=== PATIENT | female | born 1965 | race American Indian/Alaskan Native ===

== ENCOUNTER 2017-11-02 01:50 | Emergency (ER) | payer SELFPAY ==
[2017-11-02] MEDS ORDERED: Cephalexin 500 MG Cap PO ONE (01:51)
[2017-11-02 02:10] VITALS: BP 168/99
[2017-11-02] MEDS ORDERED: Cephalexin 500 MG Cap ONE (02:31)
--- NOTE | 2017-11-02 02:38 | EDM.PDOC ---
ED HPI GENERAL MEDICAL PROBLEM - General Chief Complaint: General Stated Complaint: EAR TO SINUSES, FEVER Time Seen by Provider: 11/02/17 02:10 Source of Information: Reports: Patient History Limitations: Reports: No Limitations - History of Present Illness INITIAL COMMENTS - FREE TEXT/NARRATIVE: c/o pain to left upper first molar worse today, pressure into sinus area and left ear, Left Ear Pain Score (Numeric/FACES): 6 - Related Data Allergies Allergy/AdvReac Type Severity Reaction Status Date / Time amoxicillin [Amoxicillin] Allergy Hives Verified 11/02/17 01:55 Penicillins Allergy Hives Verified 11/02/17 01:55 Home Meds: Home Meds Metoprolol Succinate [Toprol Xl] 100 mg PO DAILY 08/08/14 [History] cloNIDine [Catapres] 0.1 mg PO Q12HR 08/08/14 [History] Acetaminophen [Tylenol] 500 mg PO Q6H PRN 03/24/15 [History] Cyclobenzaprine [Flexeril] 1 tab PO ASDIRECTED 04/10/16 [History] Acetaminophen/oxyCODONE [Percocet 325-5 MG] 1 tab PO ASDIRECTED PRN 11/02/17 [ History] Ferrous Gluconate [Iron] 11/02/17 [History] Multivitamin with Minerals [Hair, Skin and Nails] 11/02/17 [History] Past Medical History - Past Health History Medical/Surgical History: Denies Medical/Surgical History HEENT History: Reports: None Cardiovascular History: Reports: Hypertension Respiratory History: Reports: None Gastrointestinal History: Reports: GERD Genitourinary History: Reports: None PATIENTS TRANSPORTER History: Reports: None Musculoskeletal History: Reports: Other (See Below) Other Musculoskeletal History: Arthritic changes in her back Neurological History: Reports: None Psychiatric History: Reports: Anxiety Endocrine/Metabolic History: Reports: None Hematologic History: Reports: Anemia Immunologic History: Reports: None Oncologic (Cancer) History: Reports: None Dermatologic History: Reports: None - Infectious Disease History Infectious Disease History: Reports: Chicken Pox - Past Surgical History HEENT Surgical History: Reports: Other (See Below) Cardiovascular Surgical History: Reports: None GI Surgical History: Reports: Colonoscopy, EGD Female Surgical History: Reports: Tubal Ligation, Other (See Below) Musculoskeletal Surgical History: Reports: Other (See Below) Other Musculoskeletal Surgeries/Procedures:: foot surgery Other Oncologic Surgeries/Procedures: mole removed from back...benign Social & Family History - Tobacco Use Smoking Status *Q: Former Smoker Years of Tobacco use: 20 Packs/Tins Daily: 0.2 Used Tobacco, but Quit: Yes Month Tobacco Last Used: 2015 Second Hand Smoke Exposure: No - Caffeine Use Caffeine Use: Reports: Soda - Alcohol Use Days Per Week of Alcohol Use: 0 Number of Drinks Per Day: 5 Total Drinks Per Week: 0 - Recreational Drug Use Recreational Drug Use: No Drug Use in Last 12 Months: No - Living Situation & Occupation Living situation: Reports: with Family Occupation: Student ED ROS GENERAL - Review of Systems Review Of Systems: ROS reveals no pertinent complaints other than HPI. ED EXAM, GENERAL - Physical Exam Exam: See Below Exam Limited By: No Limitations General Appearance: Alert, Mild Distress Eye Exam: Bilateral Eye: EOMI, Globe Laceration Ears: Normal External Exam, Hearing Loss Ear Exam: Right Ear: TM Red Nose: Normal Inspection Throat/Mouth: Normal Inspection Head: Atraumatic, Other Neck: Normal Inspection, Supple Respiratory/Chest: No Respiratory Distress, Lungs Clear, Normal Breath Sounds, No Accessory Muscle Use, Chest Non-Tender Cardiovascular: Normal Peripheral Pulses, Regular Rate, Rhythm GI/Abdominal: Normal Bowel Sounds, No Abnormal Bruit Back Exam: Normal Inspection Extremities: Normal Inspection, Normal Range of Motion Neurological: Alert, Oriented, Normal Gait Skin Exam: Warm, Dry, Intact Course - Vital Signs Last Recorded V/S: Last Vital Signs Temp 96.1 F 11/02/17 02:07 Pulse 82 11/02/17 02:07 Resp 16 11/02/17 02:07 BP 168/99 H 11/02/17 02:07 Pulse Ox 99 11/02/17 02:07 Departure - Departure Time of Disposition: 02:25 Disposition: Home, Self-Care 01 Condition: Good Clinical Impression: Pain due to dental caries - Discharge Information Instructions: Dental Abscess, [id number] Additional Instructions: keflex 500mg one 4times daily for one week alternate tylenol and ibuprofen for discomfort room temperature liquids chew on opposite side follow up with dentist on Saturday
== END 2017-11-02 02:34 | disposition home or self-care (01) ==
LOC: DL.ED 01:50
DX: K02.9 Dental caries, unspecified (principal); I10 Essential (primary) hypertension; Z88.1 Allergy status to other antibiotic agents; Z88.0 Allergy status to penicillin; Z79.899 Other long term (current) drug therapy; Z87.891 Personal history of nicotine dependence
CPT/HCPCS: 99282; A9270-GY

== ENCOUNTER 2020-07-04 18:43 | Emergency (ER) | payer MEDICAID, OTHER ==
[2020-07-04] MEDS ORDERED: diphenhydrAMINE 50 MG Cap PO ONE (18:44)
[2020-07-04] MEDS ORDERED: Cyclobenzaprine 10 MG Tab PO ONE (18:44)
[2020-07-04 19:10] VITALS: BP 147/89; PULSE 79
--- NOTE | 2020-07-04 19:30 | EDM.PDOC ---
ED HPI GENERAL MEDICAL PROBLEM - General Chief Complaint: Headache Stated Complaint: HIGH BLOOD PRESSURE, SOB, HEADACHES Time Seen by Provider: 07/04/20 19:30 Source of Information: Reports: Patient, RN, RN Notes Reviewed History Limitations: Reports: No Limitations - History of Present Illness INITIAL COMMENTS - FREE TEXT/NARRATIVE: Patient presents to ER with complaint of headache, muscle pain in the neck and shoulders. Also complains of some muscle pains in the back and hips. Patient states she does have a history of osteoarthritis. States her blood pressure been has been elevated recently, last BP at home was 168/98. Blood pressure here is 153/73. Patient states she has not had any known exposure to COVID, states she stays home most of the time. Patient has seen her primary care provider, has been approved for physical therapy, and is trying to get approved for therapeutic massage. Onset: Gradual Left Upper Shoulder Pain Score (Numeric/FACES): 8 - Related Data Allergies Allergy/AdvReac Type Severity Reaction Status Date / Time amoxicillin [Amoxicillin] Allergy Hives Verified 07/04/20 19:10 Penicillins Allergy Hives Verified 07/04/20 19:10 Home Meds: Home Meds Metoprolol Succinate [Toprol Xl] 100 mg PO DAILY 08/08/14 [History] cloNIDine [Catapres] 0.1 mg PO Q12HR 08/08/14 [History] Acetaminophen [Tylenol] 500 mg PO Q6H PRN 03/24/15 [History] Cyclobenzaprine [Flexeril] 1 tab PO ASDIRECTED 04/10/16 [History] Acetaminophen/oxyCODONE [Percocet 325-5 MG] 1 tab PO ASDIRECTED PRN 11/02/17 [History] Ferrous Gluconate [Iron] 11/02/17 [History] Multivitamin with Minerals [Hair, Skin and Nails] 11/02/17 [History] Citalopram [Citalopram HBr] 20 mg PO DAILY #28 tab 09/13/18 [Rx] Past Medical History - Past Health History Medical/Surgical History: Denies Medical/Surgical History HEENT History: Reports: None, Impaired Vision Other HEENT History: wears glasses Cardiovascular History: Reports: Hypertension Respiratory History: Reports: None Gastrointestinal History: Reports: GERD Genitourinary History: Reports: None CREDENTIALER History: Reports: None Musculoskeletal History: Reports: Arthritis, Neck Pain, Chronic Other Musculoskeletal History: Arthritic changes in her back Neurological History: Reports: None Psychiatric History: Reports: Anxiety Endocrine/Metabolic History: Reports: Obesity/BMI 30+ Hematologic History: Reports: Anemia Immunologic History: Reports: None Oncologic (Cancer) History: Reports: None Dermatologic History: Reports: None - Infectious Disease History Infectious Disease History: Reports: Chicken Pox - Past Surgical History HEENT Surgical History: Reports: Other (See Below) Cardiovascular Surgical History: Reports: None GI Surgical History: Reports: Colonoscopy, EGD Female Surgical History: Reports: Tubal Ligation, Other (See Below) Musculoskeletal Surgical History: Reports: Other (See Below) Other Musculoskeletal Surgeries/Procedures:: foot surgery Other Oncologic Surgeries/Procedures: mole removed from back...benign Social & Family History - Family History Family Medical History: Noncontributory - Tobacco Use Smoking Status *Q: Unknown Ever Smoked - Caffeine Use Caffeine Use: Reports: Coffee - Recreational Drug Use Recreational Drug Use: No - Living Situation & Occupation Living situation: Reports: with Family Occupation: Student ED ROS GENERAL - Review of Systems Review Of Systems: Comprehensive ROS is negative, except as noted in HPI. - Physical Exam Exam: See Below Exam Limited By: No Limitations General Appearance: Alert, WD/WN, No Apparent Distress Eye Exam: Bilateral Eye: EOMI, Normal Inspection Ears: Normal External Exam, Hearing Grossly Normal Nose: Normal Inspection, Normal Mucosa, No Blood Throat/Mouth: Normal Inspection, Normal Lips, Normal Teeth, Normal Gums, Normal Oropharynx, Normal Voice, No Airway Compromise Head Exam: Atraumatic, Normocephalic Neck: Normal Inspection, Supple, Non-Tender, Full Range of Motion Respiratory/Chest: No Respiratory Distress, Lungs Clear, Normal Breath Sounds, No Accessory Muscle Use, Chest Non-Tender Cardiovascular: Normal Peripheral Pulses, Regular Rate, Rhythm, No Edema, No Gallop, No JVD, No Murmur, No Rub GI/Abdominal: Normal Bowel Sounds, Soft, Non-Tender, No Organomegaly, No Distention, No Abnormal Bruit, No Mass (Female) Exam: Deferred Rectal (Female) Exam: Deferred Neuro Exam (Abbreviated): Alert, Oriented, CN II-XII Intact, Normal Cognition, Normal Gait, Normal Reflexes, No Motor/Sensory Deficits Back Exam: Normal Inspection, Full Range of Motion, NT Extremities: Normal Inspection, Normal Range of Motion, Non-Tender, No Pedal Edema, Normal Capillary Refill Psychiatric: Normal Affect, Normal Mood Skin Exam: Warm, Dry, Intact, Normal Color, No Rash Course - Vital Signs Last Recorded V/S: Last Vital Signs Temp 96.4 F L 07/04/20 18:58 Pulse 79 07/04/20 18:58 Resp 18 07/04/20 18:58 BP 147/89 H 07/04/20 18:58 Pulse Ox 98 07/04/20 18:58 - Orders/Labs/Meds Orders: Active Orders 24 hr Category Date Time Status DRUG SCREEN URINE BIORAD [URCHEM] Stat Lab 07/04/20 19:24 Ordered UA W/GOLDIE RFLX IF INDICATED [URIN] Stat Lab 07/04/20 19:24 Ordered Meds: Medications Discontinued Medications Generic Name Dose Route Start Last Admin Trade Name Freq PRN Reason Stop Dose Admin Ketorolac Tromethamine 30 mg 07/04/20 19:47 Toradol IM 07/04/20 19:48 ONETIME ONE Departure - Departure Time of Disposition: 19:53 Disposition: Home, Self-Care 01 Condition: Good Clinical Impression: Tension-type headache - Discharge Information *PRESCRIPTION DRUG MONITORING PROGRAM REVIEWED*: No *COPY OF PRESCRIPTION DRUG MONITORING REPORT IN PATIENT JENNIFER: No Instructions: Tension Headache, Adult, [id number] Forms: ED Department Discharge Additional Instructions: Alternate heat and ice as tolerated Rx: Cyclobenzaprine, Benadryl May use Tylenol or Excedrin tension headache [id number] as directed Drink plenty of water Follow-up with your primary care provider Sepsis Event Note (ED) - Evaluation Sepsis Screening Result: No Definite Risk - Focused Exam Vital Signs: Vital Signs Temp Pulse Resp BP Pulse Ox 07/04/20 18:58 96.4 F L 79 18 147/89 H 98 - My Orders Last 24 Hours: My Active Orders 07/04/20 19:24 DRUG SCREEN URINE BIORAD [URCHEM] Stat UA W/GOLDIE RFLX IF INDICATED [URIN] Stat - Assessment/Plan Last 24 Hours: My Active Orders 07/04/20 19:24 DRUG SCREEN URINE BIORAD [URCHEM] Stat UA W/GOLDIE RFLX IF INDICATED [URIN] Stat
[2020-07-04] MEDS ORDERED: Ketorolac 30 MG/ML SDV IM ONE (19:47)
[2020-07-04] MEDS ORDERED: diphenhydrAMINE 50 MG Cap ONE (19:55)
[2020-07-04] MEDS ORDERED: Cyclobenzaprine 10 MG Tab ONE (19:56)
== END 2020-07-04 20:04 | disposition home or self-care (01) ==
LOC: DL.ED 18:43
DX: G44.209 Tension-type headache, unspecified, not intractable (principal); I10 Essential (primary) hypertension; F41.9 Anxiety disorder, unspecified; E66.9 Obesity, unspecified; Z68.39 Body mass index [BMI] 39.0-39.9, adult; Z88.0 Allergy status to penicillin; Z88.1 Allergy status to other antibiotic agents; Z79.899 Other long term (current) drug therapy
CPT/HCPCS: 80305-QW; 81003; 96372; 99284; A9270-GY; J1885; Q0163

== ENCOUNTER 2021-11-06 06:54 | Day surgery (SDC) | payer MEDICAID, OTHER ==
[~2021-11-06 06:54] MED LIST: Dextrose 5%-0.45% NaCl 1,000 ML IV SCH; Midazolam 1 MG/ML 2 ML SDV ONE; Sodium Chloride 0.9% 10 ML Syringe FLUSH PRN; Sodium Chloride 0.9% 10 ML Syringe FLUSH SCH; fentaNYL 100 MCG/2 ML SDV ONE
[2021-11-06] MEDS ORDERED: fentaNYL 100 MCG/2 ML SDV IV ONE ×4 (06:55→08:33)
[2021-11-06] MEDS ORDERED: Midazolam 1 MG/ML 2 ML SDV IV ONE ×7 (06:55→08:31)
--- NOTE | 2021-11-06 10:06 | OR ---
DATE: 11/06/2021 PROCEDURE: Total colonoscopy. INSTRUMENT USED: PCF-H190DL Olympus video colonoscope. PREMEDICATIONS: Fentanyl 125 mcg intravenous, Versed 4 mg intravenous. Nasal O2 cannula. The procedure was done under pulse oximetry, BP recording, and cardiac monitoring. INDICATION: The patient with rectal bleeding. Colonoscopic examination is done for detection of any polypoid lesions and removal, endoscopic hemostasis therapy if needed. DESCRIPTION OF PROCEDURE: Initial rectal exam was unremarkable. Rigid anoscopy showed small internal hemorrhoids without bleeding from them. The colonoscope was passed with ease up to the ileocecal area. Photographs were taken of the cecum identified by landmarks of appendiceal orifice and double-bulged ileocecal folds. No bleeding was noted from any of the visualized areas at the commencement of the examination. The bowel preparation was found to be adequate, Dell scale 2 in right colon, 3 in other areas, total score 8. No stricture. No vascular ectasia. No large isolated ulcerations seen. No evidence of diffuse inflammatory bowel disease in the form of friability, contact bleeding, or ulcerations. No polyp or tumor mass identified. Some pigmentation noted consistent with melanosis coli. Probing the proximal sides of folds and flexures using adequate distention and clearing up the stool material, withdrawal of the scope was made, cecum to rectum time over 9 minutes. No bleeding was noted from any of the visualized areas at the completion of examination. IMPRESSION: 1. Internal hemorrhoids. 2. Melanosis coli. The patient tolerated the procedure well. [facility] /[id number]
[2021-11-06 11:19] VITALS: BP 148/89; PULSE 14
== END 2021-11-06 10:53 | disposition home or self-care (01) ==
LOC: DL.ENDO 06:54
PROVIDERS: ATTEND Internal Medicine Gastroenterology
DX: K63.89 Other specified diseases of intestine (principal); K64.8 Other hemorrhoids; E66.09 Other obesity due to excess calories; I10 Essential (primary) hypertension; E78.00 Pure hypercholesterolemia, unspecified; Z98.890 Other specified postprocedural states; Z88.0 Allergy status to penicillin; Z01.812 Encounter for preprocedural laboratory examination; Z20.822 Contact with and (suspected) exposure to COVID-19; Z68.41 Body mass index [BMI] 40.0-44.9, adult
CPT/HCPCS: 45378; 87635; J2250; J3010; J7042; U0002

== ENCOUNTER 2022-01-23 17:09 | Emergency (ER) | payer MEDICAID ==
[2022-01-23] MEDS ORDERED: Nitroglycerin 0.4 MG Tab.SL SL PRN (17:34)
[2022-01-23] MEDS ORDERED: Aspirin 81 MG Tab.Chew PO ONE (17:34)
[2022-01-23] MEDS: Sodium Chloride 0.9% 10 ML Syringe FLUSH PRN ×2 (17:45→18:29)
[2022-01-23] MEDS ORDERED: LORazepam 2 MG/ML SDV IVPUSH ONE (18:14)
[2022-01-23 18:28] LABS: PTT,PARTIAL THROMBOPLSTIN TIME 19.3 SEC (22.0-34.0)
[2022-01-23 18:31] LABS: ANION GAP 14.8 mEq/L (7-13); CHLORIDE,CL 105 mmol/L (98-107); SODIUM,NA 140 mmol/L (136-145)
[2022-01-23 19:50] VITALS: BP 123/87; PULSE 76
[2022-01-23 20:03] LABS: BENZODIAZEPINE,URINE POSITIVE (NEGATIVE); MDMA (ECSTASY), URINE NEGATIVE (NEGATIVE); METHADONE,URINE NEGATIVE (NEGATIVE); METHAMPHETAMINES,URINE NEGATIVE (NEGATIVE)
[2022-01-23 20:04] LABS: AMPHETAMINES,URINE NEGATIVE (NEGATIVE); BARBITURATES,URINE NEGATIVE (NEGATIVE); OPIATES,URINE NEGATIVE (NEGATIVE); OXYCODONE,URINE NEGATIVE (NEGATIVE); PHENCYCLIDINE,URINE NEGATIVE (NEGATIVE); TCA,URINE NEGATIVE (NEGATIVE)
[2022-01-23 20:32] LABS: CORONAVIRUS COVID-19 NAA NEGATIVE (NEGATIVE); RESPIRATORY SYNCYTIAL VIR NAA NEGATIVE (NEGATIVE)
== END 2022-01-23 21:07 | disposition home or self-care (01) ==
LOC: DL.ED 17:09
DX: R07.89 Other chest pain (principal); E78.00 Pure hypercholesterolemia, unspecified; K21.9 Gastro-esophageal reflux disease without esophagitis; I10 Essential (primary) hypertension; E66.9 Obesity, unspecified; Z68.41 Body mass index [BMI] 40.0-44.9, adult; Z88.0 Allergy status to penicillin; Z88.8 Allergy status to other drugs, medicaments and biological substances; Z79.899 Other long term (current) drug therapy; Z79.84 Long term (current) use of oral hypoglycemic drugs; Z20.822 Contact with and (suspected) exposure to COVID-19
CPT/HCPCS: 0241U; 36415; 71045; 80053; 80305; 80307; 81003; 82150; 83690; 84484; 85025; 85379; 85610; 85730; 93005; 96374; 99285; A9270; J2060

== ENCOUNTER 2023-03-23 19:55 | Emergency (ER) | payer MEDICAID ==
[2023-03-23 20:18] VITALS: BP 104/69; PULSE 90
== END 2023-03-23 20:36 | disposition left against medical advice (07) ==
LOC: DL.ED 19:55
DX: Z53.21 Procedure and treatment not carried out due to patient leaving prior to being seen by health care provider (principal)

== ENCOUNTER 2024-10-25 08:41 | Emergency (ER) | payer MEDICAID ==
[2024-10-25] MEDS: Acetaminophen 500 MG Tab PO ONE (09:53)
[2024-10-25] MEDS: Ibuprofen 800 MG Tab PO ONE (09:54)
[2024-10-25 10:50] VITALS: BP 125/83; PULSE 75
== END 2024-10-25 10:49 | disposition home or self-care (01) ==
LOC: DL.ED 08:41
DX: M25.531 Pain in right wrist (principal); I10 Essential (primary) hypertension; E78.00 Pure hypercholesterolemia, unspecified; K21.9 Gastro-esophageal reflux disease without esophagitis; F17.210 Nicotine dependence, cigarettes, uncomplicated; Z79.899 Other long term (current) drug therapy; Z88.5 Allergy status to narcotic agent; Z88.0 Allergy status to penicillin; Z88.1 Allergy status to other antibiotic agents
CPT/HCPCS: 73100; 73130; 99283; A9270